=== PATIENT | female | born 1960 | race Caucasian/White ===

== ENCOUNTER 2024-10-19 05:49 | Day surgery (SDC) | payer MEDICARE, OTHER ==
[2024-10-19] MEDS ORDERED: HYDROmorphone 0.5 MG/0.5 ML SYRINGE IVP PRN (06:00)
[2024-10-19] MEDS: IV FLUID CONTINUATION 1,000 ML IV ONE (06:35)
[2024-10-19] MEDS: SODIUM CHLORIDE 0.9% 1,000 ML IV ONE (06:35)
[2024-10-19 06:40] VITALS: RESP 16
[2024-10-19] MEDS: ACETAMINOPHEN TAB 500 MG TAB PO PRN (06:48)
[2024-10-19] MEDS: HEPARIN SODIUM,PORCINE 5,000 UNIT/ML 1 ML VIAL SQ PRN (06:48)
[2024-10-19 06:58] LABS: ALT 19 U/L (4-34); AST 25 U/L (14-36); African American GFR (CKD) 9 (>60 ml/min/1.73 sqM); Albumin 3.9 g/dL (3.5-5.0); Alkaline Phosphatase 85 U/L (38-126); Anion Gap 9 mmol/L; Blood Urea Nitrogen 61 mg/dL (7-17); Calcium 9.1 mg/dL (8.4-10.2); Carbon Dioxide 30 mmol/L (22-30); Chloride 100 mmol/L (98-107); Glucose 115 mg/dL (74-99); Non-African American GFR(CKD) 8 (>60 ml/min/1.73 sqM); Potassium 4.3 mmol/L (3.5-5.1); Sodium 139 mmol/L (137-145); Total Bilirubin 0.6 mg/dL (0.2-1.3); Total Protein 6.5 g/dL (6.3-8.2)
[2024-10-19] MEDS: DEXAMETHASONE SOD PHOSPHATE 4 MG/ML 1 ML VIAL IVP STA (06:59)
[2024-10-19] MEDS: FAMOTIDINE 20 MG/2 ML VIAL IV STA (07:00)
[2024-10-19] MEDS: ONDANSETRON 4 MG/2 ML VIAL IVP STA (07:00)
[2024-10-19] MEDS ORDERED: fentaNYL (PF) 50 MCG/ML 2 ML AMP IVP PRN (07:12)
[2024-10-19 07:16] LABS: Basophils # (A) 0.08 10*3/uL (0.00-0.10); Eosinophils # (A) 0.45 10*3/uL (0.04-0.35); Eosinophils % (A) 5.4 %; HCT 33.7 % (37.2-46.3); Lymphocytes # (A) 1.59 10*3/uL (0.90-5.00); Lymphocytes % (A) 19.1 %; MCH 32.8 pg (27.0-32.0); MCHC 32.6 g/dL (32.0-37.0); MCV 100.6 fL (80.0-97.0); Mean Platelet Volume 9.6 fL (9.5-12.2); Monocytes # (A) 0.65 10*3/uL (0.20-1.00); Monocytes % (A) 7.8 %; Neutrophils # (A) 5.43 10*3/uL (1.80-7.70); Neutrophils % (A) 65.3 %; Platelet Count 199 10*3/uL (140-440); RBC 3.35 10*6/uL (4.10-5.20); RDW 13.2 % (11.5-14.5); WBC 8.32 10*3/uL (4.50-10.00)
[2024-10-19] MEDS ORDERED: fentaNYL (PF) 50 MCG/ML 2 ML AMP ONE (07:26)
[2024-10-19] MEDS ORDERED: LIDOCAINE 1% INJ 10MG/ML (20 ML MDV) ONE (07:26)
[2024-10-19] MEDS ORDERED: GLYCOPYRROLATE 0.2 MG/ML 2 ML VIAL ONE (07:26)
[2024-10-19] MEDS ORDERED: MIDAZOLAM 2 MG/2 ML VIAL ONE (07:26)
[2024-10-19] MEDS ORDERED: SUCCINYLCHOLINE CHLORIDE 200 MG/10 ML VIAL IV ONE (07:26)
[2024-10-19] MEDS ORDERED: ROCURONIUM 10 MG/ML (5 ML VIAL) IV ONE (07:26)
[2024-10-19] MEDS ORDERED: NEOSTIGMINE 1 MG/ML 10 ML VIAL ONE (07:26)
[2024-10-19] MEDS ORDERED: PROPOFOL 10 MG/ML 20 ML VIAL IV ONE (07:26)
[2024-10-19] MEDS ORDERED: PHENYLEPHRINE-0.9% NACL SYG 1,000 MCG/10 ML SYRINGE ONE (07:26)
[2024-10-19] MEDS: ceFAZolin 2 GM in DEXTROSE 5% IN WATER 50 ML IVPB PRN (07:30)
[2024-10-19] MEDS: BUPIVACAINE (PF) 0.25% 30 ML VIAL SQ ONE (07:50)
[2024-10-19] MEDS: MINERAL OIL 1 APPLIC/ML OIL MISCELLANE ONE (08:00)
[2024-10-19] MEDS ORDERED: NALOXONE 0.4 MG/ML 1 ML VIAL IV PRN (08:56)
[2024-10-19] MEDS ORDERED: ACETAMINOPHEN TAB 325 MG TAB PO PRN (09:02)
[2024-10-19 09:06] VITALS: TEMP 97
--- NOTE | 2024-10-19 09:15 | P.OP ---
Date of Procedure: 10/19/24 Procedure(s) Performed: PREOPERATIVE DIAGNOSIS: Renal failure, malfunctioning peritoneal dialysis catheter POSTOPERATIVE DIAGNOSIS: Same PROCEDURE: Diagnostic laparoscopy, peritoneal dialysis catheter removal, peritoneal dialysis catheter placement SURGEON: Peyton EBL: Shelly cc ANESTHESIA: General COMPLICATIONS: None OPERATIVE PROCEDURE: The patient was placed in the operative table in the supine position. The abdomen was prepped and draped in usual sterile fashion. The previous catheter was prepped and brought off the field on the left-hand side. A small incision was made in the left upper quadrant. The optical trocar was used to enter the peritoneal cavity and pneumoperitoneum was achieved. 2 add itional 5 mm trocars were then placed. The patient had some adhesions at the midline umbilical location between the omentum and the abdominal wall. These were lysed sharply. I expected to see the patient's peritoneal catheter with that adhesion however there was no catheter present within the abdominal cavity. There was a small circular scar site in the left lower quadrant and I suspect that is where the catheter at 1 point entered the peritoneal cavity. As we were palpating the abdominal wall we could palpate the circular portion of the catheter present in the subcutaneous tissues right lower quadrant. I decided to place a new catheter in the right side of her abdomen. The pneumoperitoneum was evacuated. A small vertical incision was made in the right periumbilical location. Dissection down through the subcutaneous tissues took place using electrocautery. The anterior rectus was divided vertically using the scalpel. The rectus was bluntly. The posterior rectus was visualized. An 0 Vicryl pursestring was placed. A small opening in the posterior rectus fascia and peritoneum took place using a Metzenbaum scissors. There were no adhesions to the suture that was placed. The pigtail catheter was advanced into the pelvis over a stylette. No resistance was met. The inner cuff was secured to the fascia using the 0 Vicryl pursestring that was placed. The catheter was tunneled to an exit site in the right lateral lower quadrant. The catheter was connected to the 1 L bag of saline and approximated 500 mL of saline was easily introduced into the peritoneal cavity. The fluid was then allowed to evacuate. The majority of the fluid was returned. The anterior rectus fascia was then reapproximated using a running 0 Vicryl stitch. The subcutaneous tissues reprepped using 3-0 Vicryl sutures and the skin using 4-0 Monocryl sutures. The outpatient dialysis adapter was applied to the end of the catheter. I then reinflated the abdomen. A 2-0 Vicryl stitch was used to secure the catheter to the midline pelvis loosely. This was tied down using a tie knot device. Pneumoperitoneum was again evacuated. The 3 laparoscopic trocar sites were closed using 4-0 Monocryl subcuticular sutures. Skin glue was then applied at these incision sites. Next we addressed to the subcutaneous catheter in the right lower quadrant. A small horizontal incision was made overlying the subcutaneous tubing. The tubing was able to be excised. Both of the cuffs were easy to remove in that location using blunt dissection and cautery. The catheter was then pulled out the remainder of the way from its exit site in the left lower quadrant. Subcutaneous tissues of the air were irrigated with saline. They were then reapproximated using 3-0 Vicryl sutures and the skin again closed using 4-0 Monocryl sutures. Skin glue was applied. Sterile dressings were then applied after skin glue was placed over the incision. DISPOSITION: Stable to recovery room
[2024-10-19] MEDS: HYDROcodone/APAP 5-325MG 1 EACH TAB PO PRN (09:58)
[2024-10-19 10:29] VITALS: BP 121/66; PULSE 78
== END 2024-10-19 10:51 | disposition home or self-care (01) ==
LOC: OR 05:49
PROVIDERS: ATTEND Surgery
DX: T85.611A Breakdown (mechanical) of intraperitoneal dialysis catheter, initial encounter (principal); N19 Unspecified kidney failure; F17.210 Nicotine dependence, cigarettes, uncomplicated
CPT/HCPCS: 80053; 85025; 49324; C1752; J2250; J0330; J1644; J1100; J2710; J0690; J2405; J2003; J3010; J2704; J2371; J0665; J1596; J1308